=== PATIENT | female | born 1975 | race Caucasian/White ===

== ENCOUNTER 2020-08-03 06:50 | Day surgery (SDC) | payer OTHER ==
[2020-07-28 16:18] VITALS: BMI 44.8
--- OUTSIDE RECORDS SUMMARY | 2020-08-03 06:54 | XMS ---
:1975 Author Organization [facility] Care Team Providers Name Role Phone DONAL, ONDINA Unavailable Unavailable DONAL, ONDINA Unavailable Unavailable DONAL, ONDINA Unavailable Unavailable DONAL, ONDINA Unavailable Unavailable DONAL, ONDINA Unavailable Unavailable DONAL, ONDINA Unavailable Unavailable DONAL, ONDINA Unavailable Unavailable DONAL, ONDINA Unavailable Unavailable DONAL, ONDINA Unavailable Unavailable DONAL, ONDINA Unavailable Unavailable DONAL, ONDINA Unavailable Unavailable DONAL, ONDINA Unavailable Unavailable DONAL, ONDINA Unavailable Unavailable Mj GUSTAFSON, Vale Unavailable Unavailable Mj GUSTAFSON, Vale Unavailable Unavailable Mj GUSTAFSON, Vale Unavailable Unavailable Mj GUSTAFSON, Vale Unavailable Unavailable Mj GUSTAFSON, Vale Unavailable Unavailable Mj GUSTAFSON, Vale Unavailable Unavailable Re-disclosure Warning The records that you are about to access may contain information from federally- assisted alcohol or drug abuse programs. If such information is present, then the following federally mandated warning applies: This information has been disclosed to you from records protected by federal confidentiality rules (42 CFR part 2). The federal rules prohibit you from making any further disclosure of this information unless further disclosure is expressly permitted by the written consent of the person to whom it pertains or as otherwise permitted by 42 CFR part 2. A general authorization for the release of medical or other information is NOT sufficient for this purpose. The Federal rules restrict any use of the information to criminally investigate or prosecute any alcohol or drug abuse patient.The records that you are about to access may contain highly sensitive health information, the redisclosure of which is protected by Article 27-F of the [facility] Public Health law. If you continue you may haveaccess to information: Regarding HIV / AIDS; Provided by facilities licensed or operated by the [facility] Office of Mental Health; or Provided by the [facility] Office for People With Developmental Disabilities. If such information is present, then the following [facility] mandated warning applies: This information has been disclosed to you from confidential records which are protected by state law. State law prohibits you from making any further disclosure of this information without the specific written consent of the person to whom it pertains, or as otherwise permitted by law. Any unauthorized further disclosure in violation of state law may result in a fine or senior living sentence or both. A general authorization for the release of medical or other information is NOT sufficient authorization for further disclosure. Allergies and Adverse Reactions Type Description Substance Reaction Status Data Source(s ) Propensity to SHELLFISH DERIVED Shellfish Hives Medium Active [facility] adverse Derived (qualifier [facility] reactions to value) [facility] [employer] drug Medium propensity to No known allergy No known allergies Active NEXTGEN ([place] adverse reactions (situation) (situation) Medic al) to drug Family History Family Member Family Member Family Member Date of Description Data Source(s) Name Gender Status Status Unknown Female Diagnosis 06/27/2017 NEXTGEN 12:00:00 AM ([facility]) Unknown Female Diagnosis 06/27/2017 NEXTGEN 12:00:00 AM ([facility]) Encounters Encounter Providers Location Date Indications Data Source(s ) Outpatient Attender: Vale 06/09/2020 NEXTGEN ( [place] [facility] 12:00:00 AM Medical) MDReferrer: ONDINA BREAUX DONAL Emergency 01/10/2019 Shortness of Breath [facility] 09:43:57 PM [facility] 01/10/2019 11:56:15 PM EST Shortness of Breath Emergency 01/10/2019 12:00:00 AM [facility] Medications Medication Brand Start Product Dose Route Administrative Pharmacy [facility] Indications Reaction Description Data Name Date Form Instructions Instructions Source(s) Azithromyci azithr 01/10/ active Take tw o Bon n 250 MG omycin 2019 tablets Sec[facility] s Oral Tablet (ZITHR 12:00: today the n Cynthia azithromyci OMAX 00 AM one tablet H ealth n Z-BLAIRE) EST daily [employer] (ZITHROMAX 250 mg Z-BLAIRE) 250 tablet mg tablet Ergocalcife Vitami 11/25/ CAPSULE ORAL active take 1 NEXTGEN rol 85765 n D2 2019 capsule by ([place] [facility] Oral 50,000 12:00: oral route M edical) Capsule unit 00 AM every other Vitamin D2 capsul EST week with 50,000 unit e meals capsule Alprazolam Xanax TABLET 1 ORAL active alprazola m NEXTGEN 0.5 MG Oral 0.5 mg {tabl 0.5 MG Ora l ([place] Tablet tablet et} Tablet Medical) [Xanax] [Xanax] Xanax 0.5 mg tablet quinapril quinap 10 mg Oral active Take 10 mg Bon 10 MG Oral ril by mouth Sec[facility] rs Tablet (ACCUP nightly. Cynthia quinapril RIL) Health (ACCUPRIL) 10 mg System I nc 10 mg tablet tablet quinapril quinap TABLET 1.00 ORAL active take 1 NE XTGEN 10 mg ril 10 {tabl tablet by ([place] and tablet MG et} oral route Medical ) Oral every day Tablet Alprazolam ALPRAZ 0.5 Oral active Take 0.5 m g Bon 0.5 MG Oral olam mg by mouth Sec[facility] urs Tablet (XANAX three (3) Charit y [Xanax] ) 0.5 times daily Heal th ALPRAZolam mg as needed [facility] [employer] (XANAX) 0.5 tablet for Anxiety . mg tablet Ergocalcife Vitami CAPSULE ORAL active take 1 NEXTGEN rol 69868 n D2 capsule by ([place] [facility] Oral 50,000 oral route Med ical) Capsule unit every other Vitamin D2 capsul week 50,000 unit e capsule Alyacen Ethiny TABLET 1.00 ORAL active Alyacen 1/3 5 NEXTGEN (28) 1 l {tabl 28-Day Kit ( [place] mg-35 mcg Estrad et} Medical) tablet iol 0.035 MG / Noreth indron e 1 MG Oral Tablet Insurance Providers Payer name Policy type / Policy ID Covered Covered constitution party's Policy Plan Coverage type constitution party ID relationship to Lee Information lee ELFRIDA [id number] [facility] HEALTH PLANS [place] [employer] [id number] self [id number] insurance ELFRIDA [id number] 1 HEALTH PLAN [facility] [id number] HEALTH PLAN Problems, Conditions, and Diagnoses Code Display Name Description Problem Type Effective Data Dates Source(s) Z13.89 Encounter for Encounter for Diagnosis 11/13/2018 NEXTGEN screening for screening for interpretation 12:00:00 AM ([facility] other disorder other disorder (observable EST Medic al) entity) [id number] Hypertensive Hypertensive Problem (finding) 06/27/2017 NEX TGEN disorder disorder 12:00:00 AM ([facility] Medical) [id number] Anxiety Anxiety Problem (finding) 06/27/2017 NEXTGEN 12:00:00 AM ([facility]) D56.3 Thalassemia minor Thalassemia minor Diagnosis NEXTGEN interpretation ([place] (observable Medical) entity) D47.3 Essential Essential Diagnosis NEXTGEN (hemorrhagic) thrombocytosis interpretation ([facility] thrombocythemia (observable Medical) entity) D72.829 Elevated white Leukocytosis Diagnosis NEXTGEN blood cell count, interpretation ([facility] unspecified (observable Medical) entity) 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 NEXTGEN malabsorption, malabsorption, interpretation ([facility] unspecified unspecified (observable Medical) entity) D50.0 Iron deficiency Iron deficiency Diagnosis NEXT GEN anemia secondary anemia secondary interpretation ([place] to blood loss to blood loss (observable Medical ) (chronic) (chronic) entity) D51.8 Other vitamin B12 Other vitamin B12 Diagnosis NEXTGEN deficiency anemias deficiency interpretation ([facility] anemias (observable Medical) entity) D47.3 Essential Essential Diagnosis NEXTGEN (hemorrhagic) thrombocytosis interpretation ([facility] thrombocythemia (observable Medical) entity) D72.829 Elevated white Leukocytosis Diagnosis NEXTGEN blood cell count, interpretation ([facility] unspecified (observable Medical) entity) E61.1 Iron deficiency Iron deficiency Diagnosis NEXT GEN interpretation ([place] (observable Medical) entity) D68.0 Von Willebrand's Von Willebrand's Diagnosis NE XTGEN disease disease interpretation ([place] (observable Medical) entity) D56.3 Thalassemia minor Thalassemia minor Diagnosis NEXTGEN interpretation ([place] (observable Medical) entity) D51.8 Other vitamin B12 Other vitamin B12 Diagnosis NEXTGEN deficiency anemias deficiency interpretation ([facility] anemias (observable Medical) entity) D50.0 Iron deficiency Iron deficiency Diagnosis NEXT GEN anemia secondary anemia secondary interpretation ([place] to blood loss to blood loss (observable Medical ) (chronic) (chronic) entity) D68.0 Von Willebrand's Von Willebrand's Diagnosis NE XTGEN disease disease interpretation ([place] (observable Medical) entity) D51.8 Other vitamin B12 Other vitamin B12 Diagnosis [facility]EXTGEN deficiency [facility]ias [facility]) D50.0 Iron deficiency Iron deficiency Diagnosis NEXT GEN anemia secondary anemia secondary interpretation ([place] to blood loss to blood loss (observable Medical ) (chronic) (chronic) entity) D50.0 Iron deficiency Iron deficiency Diagnosis NEXT GEN anemia secondary anemia secondary interpretation ([place] to blood loss to blood loss (observable Medical ) (chronic) (chronic) entity) D68.0 Von Willebrand's Von Willebrand's Diagnosis NE XTGEN disease disease interpretation ([place] (observable Medical) entity) D51.8 Other vitamin B12 Other vitamin B12 Diagnosis NEXTGEN deficiency anemias deficiency interpretation ([facility] anemias (observable Medical) entity) 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 NEXTGEN malabsorption, malabsorption, interpretation ([facility] unspecified unspecified (observable Medical) entity) E61.1 Iron deficiency Iron deficiency Diagnosis NEXT GEN interpretation ([place] (observable Medical) entity) D68.0 Von Willebrand's Von Willebrand's Diagnosis NE XTGEN disease disease interpretation ([place] (observable Medical) entity) D51.8 Other vitamin B12 Other vitamin B12 Diagnosis NEXTGEN deficiency anemias deficiency interpretation ([facility] anemias (observable Medical) entity) 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 NEXTGEN malabsorption, malabsorption, interpretation ([facility] unspecified unspecified (observable Medical) entity) E61.1 Iron deficiency Iron deficiency Diagnosis NEXT GEN interpretation ([place] (observable Medical) entity) G56.22 Lesion of ulnar Lesion of ulnar Diagnosis NEXT GEN nerve, left upper nerve, left upper interpretation ([place] limb limb (observable Medical) entity) R06.02 Shortness of Shortness of Diagnosis 01/10/2019 [facility] - Go od breath breath 09:43:57 PM [facility] J20.8 Acute bronchitis Acute bronchitis Diagnosis 01/10/2019 [facility] - Good due to other due to other 09:43:57 PM [facility] organisms organisms Diagnosis NEXTGEN ([place] [facility]) Diagnosis NEXTGEN ([place]) Surgeries/Procedures Procedure Description Date Indications Data Source(s) NRV CNDJ TST 5-6 06/09/2020 NEXTGEN ([facility] STUDIES 12:00:00 AM EDT - Medical) 06/09/2020 12:00:00 AM EDT MUSC TEST DONE W/N 06/09/2020 NEXTGEN ( [place] TEST COMP 12:00:00 AM EDT - Medical) 06/09/2020 12:00:00 AM EDT HC INFLUENZA A HC INFLUENZA A STAT 01/10/2019 019 [facility] W/OPTIC W/OPTIC 10:13 PM EST 03:13:00 AM [facility] I nc HCG QL SERUM HCG QL SERUM STAT 01/10/2019 01/11/2019 [facility] 10:03 PM EST 03:03:00 AM [facility] I nc HC D DIMER QUANT HC D DIMER QUANT STAT 01/10/201901/2019 [facility] 10:03 PM EST 03:03:00 AM [facility] nc CBC WITH AUTOMATED CBC WITH STAT 01/10/2019 9 [facility] DIFF AUTOMATED DIFF 10:03 PM EST 03:03:00 AM [facility] I nc HC TROPONIN I HC TROPONIN I STAT 01/10/2019 9 [facility] QUANT QUANT 10:03 PM EST 03:03:00 AM [facility] I nc METABOLIC PANEL, METABOLIC PANEL, STAT 01/10/201901/2019 [facility] COMPREHENSIVE COMPREHENSIVE 10:03 PM EST 03:03:0 0 AM [facility] I nc EKG, 12 LEAD, EKG, 12 LEAD, STAT 01/10/2019 9 [facility] INITIAL INITIAL 9:55 PM EST 02:55:20 AM [facility] I nc OFFICE/OUTPATIENT VISIT, EST 11/13/2018 12:00:00 AM ES T NEXTGEN ([place] - 11/13/2018 12:00:00 AM Med ical) EST BRIEF EMOTIONAL/BEHAV ASSMT 11/13/2018 12:00:00 AM EST NEXTGEN ([place] - 11/13/2018 12:00:00 AM Med ical) EST OFFICE/OUTPATIENT VISIT, EST 08/05/2018 12:00:00 AM ED T NEXTGEN ([place] - 08/05/2018 12:00:00 AM Med ical) EDT OFFICE/OUTPATIENT VISIT, EST 04/08/2018 12:00:00 AM ED T NEXTGEN ([place] - 04/08/2018 12:00:00 AM Med ical) EDT OFFICE/OUTPATIENT VISIT, EST 12/05/2017 12:00:00 AM ES T NEXTGEN ([facility] 12/05/2017 12:00:00 AM Med ical) EST OFFICE/OUTPATIENT VISIT, EST 07/25/2017 12:00:00 AM ED T NEXTGEN ([place] - 07/25/2017 12:00:00 AM Med ical) EDT OFFICE CONSULTATION 06/27/2017 12:00:00 AM EDT NEXTGEN ([facility] 06/27/2017 12:00:00 AM Med ical) EDT Results ID Date Data Source [id number] 01/11/2019 08:00:38 PM [facility] The history is provided by the patient.9 :49 PM: Lary Nelson is a 43 y.o. female with h/o anxiety who presents tot ED c /o shortness of breath with associated chest pain which "feels likesomeone is grabbin g her sides) and is worse on the left side than the right.Patient also reports havi ng a cough and sore throat onset today. Patient deniesfever or nasal congestion. No other complaints at this time.No past medical history on file.No past surgical history on file.No family history on file.Social HistorySocioeconomic History Marital status: Not on file Spouse name: Not on file Number of children: Not on file Years of education: Not on file Highest education level: Not on fileSoci al Needs Financial resource strain: Not on file Food insecurity - worry: Not on fi le Food insecurity - inability: Not on file Transportation needs - medical: Not on f ile Transportation needs - non-medical: Not on fileOccupational History Not on file Tobacco Use Smoking status: Not on fileSubstance and Sexual Activity Alcoh ol use: Not on file Drug use: Not on file Sexual activity: Not on fileOther Topics Concern Not on fileSocial History Narrative Not on fileALLERGIES: Patient has no al lergy information on record.Review of SystemsConstitutional: Negative for chil ls and fever.HENT: Positive for sore throat. Negative for congestion and rhinorrhea.E yes: Negative for photophobia and visual disturbance.Respiratory: Positive for co ugh and shortness of breath.Cardiovascular: Positive for chest pain ("feels like mary eone is grabbing her"and is worse on left side than right). Negative for leg swell ing.Gastrointestinal: Negative for abdominal pain, diarrhea, nausea and vomiting.Kasey tourinary: Negative for dysuria and hematuria.Musculoskeletal: Negative for back pain and myalgias.Skin: Negative for color change and pallor.Neurological: Ne gative for seizures and syncope.Vitals: 01/10/19 2148 01/10/19 2150BP: (!) 149/9 1Pulse: (!) 108Resp: 22Temp: 98.1 F (36.7 C)SpO2: 100%Weight: 124.7 kg (275 lb)He ight: 5' 7" (1.702 m)9:48 PM Pulse Oximetry reading is 100 % on room air, which emily cates normaloxygenation per Ban Carey MD.Physical ExamConstitutional: She is o riented to person, place, and time. She appearswell-developed and well-nourished . No distress.Patient is obese.HENT:Head: Normocephalic and atraumatic.Eyes: EOM a re normal. Pupils are equal, round, and reactive to light.Neck: Neck supple. No JVD present.Cardiovascular: Regular rhythm and normal heart sounds. Tachycardia pre sent.Pulmonary/Chest: Effort normal and breath sounds normal. No respiratorydist ress. She has no wheezes. She has no rales.Abdominal: Soft. She exhibits no d istension. There is no tenderness. There is norebound and no guarding.Musculoskeleta l: Normal range of motion. She exhibits no edema or tenderness.Neurological: She is alert and oriented to person, place, and time.Skin: Skin is warm and dry.Psychiat radu: She has a normal mood and affect.Nursing note and vitals reviewed.MDMNumber of Di agnoses or Management OptionsAnxiety state:SOB (shortness of breath):Amount a nd/or Complexity of Data ReviewedClinical lab tests: ordered and reviewedTests in the radiology section of CPT : ordered and reviewedDecide to obtain previous medica l records or to obtain history from someoneother than the patient: yesReview and summarize past medical records: yesIndependent visualization of images, tracings, or specimens: yesProDinah Au Priti V, MD, reviewed the patien t's past history, allergies and homemedications as documented in the [facility] chart.Labs:Recent Results (from the past 12 hour(s))EKG, 12 LEAD, INITIAL Collect ion Time: 01/10/19 9:55 PMResult Value Ref Range Ventricular Rate 100 BPM Atrial Ra te 99 BPM P-R Interval 156 ms QRS Duration 83 ms Q-T Interval 348 ms QTC Calculation ( Bezet) 449 ms Calculated P [place] 66 degrees Calculated R [place] -9 degrees Calculated T [place] 30 degrees Diagnosis Sinus tachycardiaProbable left atrial enlargem entMETABOLIC PANEL, COMPREHENSIVE Collection Time: 01/10/19 10:03 PMResult Value Ref Range Sodium 138 136 - 145 mmol/L Potassium 3.7 3.5 - 5.1 mmol/L Chloride 103 98 - 1 07 mmol/L CO2 26 21 - 32 mmol/L Anion gap 13 10 - 20 mmol/L Glucose 106 74 - 106 mg/d L BUN 16 7 - 18 mg/dL Creatinine 0.81 0.40 - 1.16 mg/dL GFR est AA >60 >60 ml/min/1.7 3m2 GFR est non-AA >60 >60 ml/min/1.73m2 Calcium 8.8 8.5 - 10.1 mg/dL Bilirubin, total 0.3 0.2 - 1.0 mg/dL ALT (SGPT) 16 13 - 61 U/L AST (SGOT) 8 (L) 15 - 37 U/L Alk. phosphatase 123 (H) 45 - 117 U/L Protein, total 8.1 6.4 - 8.2 g/dL Albumin 3.5 3.5 - 4.7 g/dL Globulin 4.6 1.7 - 4.7 g/dL A-G Ratio 0.7 0.7 - 2.8CBC WITH AUTOMATED DI FF Collection Time: 01/10/19 10:03 PMResult Value Ref Range WBC 13.2 (H) 4.8 - 10.6 K/uL RBC 4.63 4.20 - 5.40 M/uL HGB 12.9 12.0 - 16.0 g/dL HCT 39.3 36.0 - 47.0 % MCV 8 4.9 81.0 - 94.0 FL MCH 27.9 27.0 - 35.0 PG MCHC 32.8 30.7 - 37.3 g/dL RDW 14.2 (H) 11.5 - 14.0 % PLATELET 372 130 - 400 K/uL MPV 9.3 9.2 - 11.8 FL NEUTROPHILS 64 48.0 - 72.0 % LYMPHOCYTES 27 18.0 - 40.0 % MONOCYTES 8 2.0 - 12.0 % EOSINOPHILS 1 0.0 - 7.0 % BASOPHILS 0 0.0 - 3.0 % ABS. NEUTROPHILS 8.4 (H) 1.5 - 6.6 K/UL ABS. LYMPHOCYTES 3.5 1.5 - 3.5 K/UL ABS. MONOCYTES 1.1 (H) 0.0 - 1.0 K/UL ABS. EOSINOPHILS 0.2 0.0 - 0.7 K/UL ABS. BASOPHILS 0.0 0.0 - 0.1 K/UL DF AUTOMATED IMMATURE GRANULOCYTES 0 0.0 - 2.0 %TROPONIN I Collection Time: 01/10/19 10:03 PMResult Value Ref Range Troponin- I, Qt. <0.02 0.00 - 0.05 NG/MLD DIMER Collection Time: 01/10/19 10:03 PMResult Value Ref Range D-dimer <500 <500 ng/mLHCG QL SERUM Collection Time: 01/10/19 10:03 PMResult Value Ref Range HCG, Ql. NEGATIVE NEGINFLUENZA A & B AG (RAPID TEST) Colle vaion Time: 01/10/19 10:13 PMResult Value Ref Range Influenza A Ag NEGATIVE NEG Influ vicki B Ag NEGATIVE NEG Method IMMUNOCHROMATOGRAPHIC MEMBRANE ASSAY Com ment Result: Negative for Influenza A and B Source NASOPHARYNGEALEKG: Sinus tachycar kiley at 100 BPM. Interpreted by Ban Carey MD9:55 PM equipment monitor phototypesetting reading valente ws sinus tachycardia at 100 BPM. Interpretedby Ban Carey MD.Radiol ogy:CXR Results: Negative. Interpreted by Ban Carey MD<EMERGENCY DEPARTMENT CASE SUMMARY>Impression/Differential Diagnosis: Shortness of breath. R/o PE.E D Course:43 y.o. female presented to the ED c/o shortness of breath with associated chestpain which "feels like someone is grabbing her sides) and is worse on the leftside than the right. Order labs, Troponin, EKG, Tight Barrel Inspector, and CXR. Giveoxygen.10:21 PM Give Duo-Neb.10:35 PM Give Xanax.Labs and radiology results re viewed.(-) D dimer11:21 PM Give Zithromax.11:28 PM: Patient was reassess ed prior to discharge. Patient's symptomsImproved. I personally discussed discharge plan with patient/guardian, whounderstands instructions. All questio ns were answered. Patient/guardian advisedto follow up with PMD and/or specialist. Ramon tient/guardian instructed to returnto the ER if symptoms persist, change or worsen. P atient agrees with plan. Rx:Zithromax 250mg.Final Impression/Diagnosis:Encount er Diagnoses ICD-10-CM ICD-9-CM1. Anxiety state F41.1 300.002. SOB (shortness of b reath) R06.02 786.053. Acute bronchitis due to other specified organisms J20.8 466.0 Patient condition at time of disposition: stableI have reviewed the following home medications:Prior to Admission medicationsNot on Ban Mott M D I, Kate E Stillman, am serving as a scribe to document services personallyperformed by Ban Carey MD based on my observation and the provider'sstatements to me.I, Ban Carey MD, attest that the person(s) noted above, acting as mys cribe(s) noted above, has observed my performance of the services and hasdocum ented them in accordance with my direction. I have personally reviewed theabove inform ation and have ordered and reviewed the diagnostic studies, unlessotherwise note d. Name Value Range Interpretation Code Description Data Vera rce(s) Supporting Document(s ) ID Date Data Source [id number] 01/11/2019 09:14:06 AM [facility] XR CHEST PORTABLE-SINGLE VIEWPRIOR: None .HISTORY: As provided the time of presentation to the emergency room; ptco mplains of shortness of breath and cough, afebrile, complains a scratchythroat.FIN DINGS: No infiltrates, effusions, nodules or masses are identified. The heart, carole and mediastinum are unremarkable.IMPRESSION:1. No acute card iopulmonary disease.Signing date/time: 01/11/2019 9:14 AMSigned by: ST MONICA DARBY Name Value Range Interpretation Code Description Data Vera rce(s) Supporting Document(s ) ID Date Data Source [id number]*ENCOUNTER 01/10/2019 11:56:17 PM EST [facility] [id number] [facility] EMERGENCY DEPARTMENT [address] [facility] [address] [phone]/12/30 Lary Nelson (Female) [id number] SHANA 3 ED Dispo:DISCHARGE Chief Complaint: Shortness of Breath Diagnosis: Anxiety state [] SOB (shortness of breath) [] Acute bronchitis due to other specified organisms [] Current Providers: Attending: Lionel Carey Primary Nurse: HOWIE DaveyN: [phone] [id number] [employer] [id number] - Bs hsi Ed [employer] MrnMRN: [id number] [employer] [id number] - Bshsi Ed [employer]va Age SexDOB 8 AGE 43 SEX Female Primary Care Provider: NoneAllergy Agents Noted Type Reaction(s)SHELLFISH DERIVED 01/10/2019 Systemic 2 - HivesDate Reviewed: 01/10/2019[facility] ed by: Alfonso Puentes RN - Review CompleteED Provider Notes: No notes of this type exist for this encoun ter.ED Orders [id number] COMPRESSED GAS TESTER - ED ONLY [#[id number]] Priority: STAT Class: H ospital Performed Standing Order Information Remaining Occurrences:0/1 Interval:Contin uous Last released:01/10/2019 Released orders: [facility] Jan 10, 2019 9:53 PM by: MANE CAREY V Type: -> Bedside [id number] PULSE OXIMETRY CONTINUOUS [#[id number]] Priority: STAT Cla ss: Hospital Performed Standing Order Information Remaining Occurrences:0/1 Interval:CONTIN UOUS Last released:01/10/2019 Released orders: [facility] Jan 10, 2019 9:53 PM by: MANE CAREY V [id number] PULSE OXIMETRY SPOT CHECK [#[id number]] Priority: STAT Class: Hospital Performe d Standing Order Information Remaining Occurrences:0/1 Interval:ONE TIME Last released :01/10/2019 Released orders: [facility] Jan 10, 2019 9:53 PM by: BAN CAREY V [id number] CARDIAC MO NITOR - ED ONLY [#[id number]] Priority: STAT Class: Hospital Performed Type: -> Bedside Released on: 01/10/2019 9:53 PM [id number] PULSE OXIMETRY CONTINUOUS [#[id number]] P riority: STAT Class: Hospital Performed Released on: 01/10/2019 9:53 PM [id number] PULSE OXIMETRY SPOT CH TESFAYE [#[id number]] Priority: STAT Class: Hospital Performed Released on: 01/10/2019 9: 53 PM [id number] RT--OXYGEN CANNULA [#[id number]] Priority: STAT Class: Hospital Performe d Standing Order Information Remaining Occurrences:0/1 Interval:CONTINUOUS Last releas ed:01/10/2019 Released orders: [facility] Jan 10, 2019 9:53 PM by: BAN CAREY V LPM -> 2 Indications for O2? -> RESPIRATORY DISTRESS [id number] RT--OXYGEN CANNULA [#[id number]] Priority: STAT Class: Hospital Performed LPM -> 2 Indications for O2? -> RESPIRATORY DISTR ESS Released on: 01/10/2019 9:53 PM [id number] DIET NPO [#[id number]] Priori ty: STAT Class: Hospital Performed Standing Order Information Remaining Occurrences:0/1 Inte rval:DIET EFFECTIVE NOW Last released:01/10/2019 Released orders: [facility] Jan 10, 2019 9:53 PM by: BAN CAREY V [id number] DIET NPO [#[id number]] Priority: STAT Class: Hospital Performed Released on: 01/10/2019 9:53 PM [id number] SALINE LOCK IV [# [id number]] Priority: STAT Class: Hospital Performed Standing Order Information Remaining Occurre nces:0/1 Interval:ONE TIME Last released:01/10/2019 Released orders: [facility] Jan 10 9:53 PM by: BAN CAREY V [id number] SALINE LOCK IV [#[id number]] Priority: STAT Class: Hospital Performed Released on: 01/10/2019 9:53 PM [id number] METABOLIC PANEL, COMPREHENSIVE [#[id number]] Priority: STAT Class: ER Collect Standing Order Information Remaining Occurre nces:0/1 Interval:ONE TIME Last released:01/10/2019 Released orders: [facility] Jan 10 9:53 PM by: BAN CAREY V [id number] CBC WITH AUTOMATED DIFF [#[id number]] Priority: STAT Class: ER Collect Standing Order Information Remaining Occurrences:0/1 Interval:ONE TI ME Last released:01/10/2019 Released orders: [facility] Jan 10, 2019 9:53 PM by: MANE CAREY V [id number] TROPONIN I [#[id number]] Priority: STAT Class: ER Collect Sta nding Order Information Remaining Occurrences:0/1 Interval:NOW Last released:2018 Released orders: [facility] Jan 10, 2019 9:53 PM by: BAN CAREY V [id number] D DIMER [#[id number]] Priority: STAT Class: ER Collect Standing Order Information Remaining Occurrences:0/1 Interval:ONE TIME Last released:01/10/2019 Released orders : [facility] Jan 10, 2019 9:53 PM by: BAN CAREY V [id number] HCG QL SERUM [# [id number]] Priority: STAT Class: ER Collect Standing Order Information Remaining Occurrences:0 /1 Interval:ONE TIME Last released:01/10/2019 Released orders: [facility] Jan 10, 2019 9:53 PM by: BAN CAREY V [id number] METABOLIC PANEL, COMPREHENSIVE [#[id number]] Mane ority: STAT Class: ER Collect Specimen Source: Plasma Specimen Collected: 01/10/2019 10:03 PM Resultin g Agency: [facility] Test ID: MPL Released on: 01/10/2019 9:53 PM [id number] CBC WITH AUTOMATED DIFF [#[id number]] Priority: STAT Class: ER Collect Specimen Source : Whole Blood Specimen Collected: 01/10/2019 10:03 PM Resulting Agency: [facility] Test ID: [id number] Released on: 01/10/2019 9:53 PM [id number] TROPONIN I [# [id number]] Priority: STAT Class: ER Collect Specimen Source: Plasma Specimen Collected: 01/10/2019 1 0:03 PM Resulting Agency: [facility] Test ID: TROIP Released on: 01/10/2019 9: 53 PM [id number] D DIMER [#[id number]] Priority: STAT Class: ER Collect Speci men Source: Plasma Specimen Collected: 01/10/2019 10:03 PM Resulting Agency: [facility] Test ID: [id number] Released on: 01/10/2019 9:53 PM [id number] HCG QL SERUM [#[id number]] Priority: STAT Class: ER Collect Specimen Source: Serum Specimen Collected: 01/10 10:03 PM Resulting Agency: [facility] Test ID: [id number] Released on: 9 9:53 PM [id number] EKG, 12 LEAD, INITIAL [#[id number]] Priority: STAT Class: H ospital Performed Standing Order Information Remaining Occurrences:0/1 Interval:ONE TI ME Last released:01/10/2019 Released orders: Sat Jan 10, 2019 9:53 PM by: MANE CAREY V Reason for Exam: -> Shortness of Breath [id number] EKG, 12 LEAD, INITIAL [#[id number]] Priority: STAT Class: Hospital Performed Specimen Collected: 01/10/2019 9:55 PM Resultin g Agency: [facility] Test ID: [id number] Reason for Exam: -> Shortness of Breath Released on: 12/2018 9:53 PM [id number] XR CHEST PORT [#[id number]] Priority: STAT Class: H ospital Performed Standing Order Information Remaining Occurrences:0/1 Interval:ONE TI ME Last released:01/10/2019 Released orders: Sat Jan 10, 2019 9:53 PM by: MANE CAREY V Reason for Exam -> Shortness of Breath [id number] XR CHEST PORT [#[id number] ] Priority: STAT Class: Hospital Performed Resulting Agency: [facility] Test ID: [id number] Reason for Exam -> Shortness of Breath Released on: 01/10/2019 9:53 PM ALPRAZOLAM 0.5 MG TAB [#[id number]] Priority: Routine Class: Historical Med QUINAPRIL 10 MG TAB [#[id number]] Priority: Routine Class: Historical Med IPRATROPIUM-ALBUTEROL 2.5 MG-0.5 MG/* [# [id number]] Priority: STAT Class: Normal MODE OF DELIVERY -> Nebulizer ALPRAZOLAM 0.5 MG TA B [#[id number]] Priority: STAT Class: Normal AZITHROMYCIN 250 MG TAB [#[id number]] Priority: STAT Class: Normal Antibiotic Indications -> Upper Respiratory Infecti on AZITHROMYCIN 250 MG TAB [#[id number]] Priority: Routine Class: Normal OFN998 6 INFLUENZA A & B AG (RAPID TEST) [#[id number]] Priority: STAT Class: ER Collect Standing Orde r Information Remaining Occurrences:0/1 Interval:ONE TIME Last released:01/10/2019 Released orders: Sat Jan 10, 2019 10:12 PM by: DOMO DAVEY [id number] INFLUENZA A & B AG (RAP ID TEST) [#[id number]] Priority: STAT Class: ER Collect Specimen Source: Nasal washing Specimen Collected: 01/10/2019 10:13 PM Resulting Agency: [facility] Test ID: INFLUA Released on: 01/10/2019 10:12 PMLary Nelson MR#: [id number] * Rm: [id number] Ht: 5' 7" Wt: 275 lb Code: Not on file Iso:Diagnosis:Allergies: Shellfish Derived ------ Current as of: 01/10/19 2356 GI=Given -------albuterol-ipratropium (DUO-NEB) 2.5 MG-0.5 MG/3 ML #[id number] Admin Amount: 3 mL Ordered Dose: 3 mL Route: Nebulization Freq: NOW Start Date: 01/10/19 Administration times (back 96 hours, ahead 96 hours): 01/10/19: 2226GI -----ALPRAZolam (XANAX) tablet 0.5 mg #[id number] Admin Amount: 1 Tab (1 x 0.5 mg Tab) Ordered Dose: 0.5 mg Route: Leslye simms Freq: NOW Start Date: 01/10/19 Administration times (back 96 hours, ahe ad 96 hours): 01/10/19: 2237GI -----azithromycin (ZITHROMAX) tablet 500 mg #[id number] Admin Amount: 2 Tab (2 x 250 mg Tab) Ordered Dose: 500 mg Route: Oral Nasir q: NOW Start Date: 01/10/19 Administration times (back 96 hours, ahead 96 hours): 01/10/19: 2328GI ED Current OP MedicationsALPRAZolam (XANAX) 0.5 mg tab letSig:Take 0.5 mg by mouth three (3) times daily as needed for Anxiety.Dispense Amount:Start Date:End D ate:Doc. Provider: Kunal Lloyd MDquinapril (ACCUPRIL) 10 mg tabletSig:Take 10 mg by mouth nightly.Di spense Amount:Start Date:End Date:Doc. Provider: Kunal Lloyd MDazithromycin (ZITHROMAX Z-BLAIRE) 250 mg tabletSig:Take two tablets today then one tablet dailyDispense Amount:6 TabStart Date:01/10/2019End Date: Doc. Provider: Ban Carey MD ED Prescriptionsazithromycin (ZITHROMAX Z-P AK) 250 mg tabletSig:Take two tablets today then one tablet dailyDispense Amount:6 TabStart Date:01/10End Date:Auth. Provider: Ban Carey MDFollow-up InformationFollow-up With:Rick Wong DODetails:Schedule an appointment as soon as possible for a visit in 2 daysComments:Contact Info:[address] [phone]-cm With:Details:Comments:As needed, If symp toms worsenContact Info: Name Value Range Interpretation Code Description [facility] Supporting Document(s ) ID Date Data Source [id number] 01/10/2019 11:56:06 PM [facility] Discharge instructions reviewed with ahsan barcenas, educated regarding newprescriptions and f/u care. Verbalized understanding obtai chris. Patient a&ox3,ambulatory out of ED with steady gait, no distress noted. D/c home . Name Value Range Interpretation Code Description Data [facility] Supporting Document(s ) ID Date Data Source [id number] 01/10/2019 10:42:36 PM [facility] Patient states that she feels her sympto ms may be related to her anxiety, made aware. New orders received for xana x, see MAR. Name Value Range Interpretation Code Description Data Vera rce(s) Supporting Document(s ) ID Date Data Source [id number] 01/10/2019 10:49:05 PM EST [facility] Name Value Range Interpretation Description Data Sup porting Code Source(s) Document(s ) Influenza virus NEG [facility] - Good A Ag [Presence] [facility] in [facility] by Immunoassay [facility] [Presence] [facility] in [facility] by Immunoassay IMMUNOCHROMATOGRAPHIC MEMBRANE ASSAYResu lt: Negative for Influenza A and BNote: A negative result does not exclude an infl uenza virus infection, including H1N1. If more conclusive testing is desired, foll ow-up confirmatory testing is warranted. Specimen source [Identifier] of Unspecified [facility] specimen ID Date Data Source [id number] 01/10/2019 10:39:07 PM EST [facility] Name Value Range Interpretation Description Data Sup porting Code Source(s) Document(s ) Leukocytes 13.2 4.8-10.6 Above high normal [facility] - [#/volume] in K/uL Good Blood by [facility] Automated [facility] Erythrocytes 4.63 4.20-5.4 [facility] - [#/volume] in M/uL 0 Good Blood by Jain Automated [facility] Hemoglobin 12.9 12.0-16. [facility] - [Mass/volume] in g/dL 0 [facility] Blood [facility] Hematocrit 39.3 % 36.0-47. [facility] - [Volume 0 Good Fraction] of Jain Blood by Hospital Automated count Erythrocyte mean 84.9 FL 81.0-94. [facility] - corpuscular 0 Good volume [Entitic Jain volume] by Hospital Automated count Erythrocyte mean 27.9 PG 27.0-35. [facility] - corpuscular 0 Good hemoglobin [facility] [Entitic mass] [facility] by Automated count Erythrocyte mean 32.8 30.7-37. [facility] - corpuscular g/dL 3 Good hemoglobin [facility] [Mass/volume] by Automated count Erythrocyte 14.2 % 11.5-14. Above high normal [facility] - distribution 0 Good width [Ratio] by [facility] count [facility] Platelets 372 K/uL 130-400 [facility] - [#/volume] in Good Blood by [facility]ain Automated count [facility] Platelet mean 9.3 FL 9.2-11.8 [facility] - volume [Entitic Good volume] in [facility] by Automated Hospital count Segmented 64 % 48.0-72. [facility] - neutrophils/100 0 Good leukocytes in [facility] Lymphocytes/100 27 % 18.0-40. [facility] - leukocytes in 0 [facility] Monocytes/100 8 % 2.0-12.0 [facility] - leukocytes in [facility] Eosinophils/100 1 % 0.0-7.0 [facility] - leukocytes in [facility] Basophils/100 0 % 0.0-3.0 [facility] - leukocytes in [facility] Segmented 8.4 K/UL 1.5-6.6 Above high normal [facility] - neutrophils Good [#/volume] in [facility] Lymphocytes 3.5 K/UL 1.5-3.5 [facility] - [#/volume] in [facility] Monocytes 1.1 K/UL 0.0-1.0 Above high normal [facility] - [#/volume] in [facility] Eosinophils 0.2 K/UL 0.0-0.7 [facility] - [#/volume] in [facility] Basophils 0.0 K/UL 0.0-0.1 [facility] - [#/volume] in [facility] Differential [facility] - cell count [facility] method [facility] Immature 0 % 0.0-2.0 [facility] - granulocytes/100 Good leukocytes in [facility] Hospital Automated count ID Date Data Source [id number] 01/10/2019 10:51:06 PM EST [facility] Name Value Range Interpretation Description Data Sup porting Code Source(s) Document(s ) Sodium 138 136-145 [facility] - Good [Moles/volume] mmol/L Jain in Serum or Hospital Plasma Potassium 3.7 3.5-5.1 [facility] - Good [Moles/volume] mmol/L Jain in Serum or Hospital Plasma Chloride 103 98-107 [facility] - Good [Moles/volume] mmol/L Jain in Serum or Hospital Plasma Carbon 26 21-32 [facility] - Good dioxide, total mmol/L Jain [Moles/volume] Hospital in Serum or Plasma Anion gap in 13 10-20 [facility] - Good Serum or mmol/L Jain Plasma Hospital Glucose 106 74-106 [facility] - Good [Mass/volume] mg/dL Jain in Serum or Hospital Plasma Urea nitrogen 16 mg/dL 7-18 [facility] - Good [Mass/volume] Jain in Serum or Hospital Plasma Creatinine 0.81 0.40-1.1 [facility] - Good [Mass/volume] mg/dL 6 Jain in Serum or Hospital Plasma Glomerular >60 [facility] - Good filtration Jain rate/1.73 sq M Hospital predicted among blacks [Volume Rate/Area] in Serum or Plasma by Creatinine-bas ed formula (MDRD) Glomerular >60 [facility] - Good filtration Jain rate/1.73 sq M Hospital predicted among non-blacks [Volume Rate/Area] in Serum or Plasma by Creatinine-bas ed formula (MDRD) (NOTE)Estimated GFR is calculated using the Modification of Diet in RenalDisease (MDRD) Study equation, reported for both Americans(GFRAA) and non- Americans (GFRNA), and normalized to 1.7 9u4tkzz surface area. The physician must decide which value applies tothe patient . The MDRD study equation should only be used inindividuals age 18 or older. It has no t been validated for thefollowing: women, patients with serious comorbid co nditions,or on certain medications, or persons with extremes of body size,muscl e mass, or nutritional status. Calcium [Mass/volume] in 8.8 mg/dL 8.5-10.1 [facility] - Good Serum or Plasma [facility] ital Bilirubin.total 0.3 mg/dL 0.2-1.0 [facility] - Good [Mass/volume] in Serum or [facility] Plasma Alanine aminotransferase 16 U/L 13-61 [facility] - Good [Enzymatic activity/volume] [facility] in Serum or Plasma Aspartate aminotransferase 8 U/L 15-37 Below low normal [facility] - Good [Enzymatic activity/volume] [facility] in Serum or Plasma by With P-5'-P Alkaline phosphatase 123 U/L 45-117 Above high [facility] - Good [Enzymatic activity/volume] normal [facility] in Serum or Plasma Protein [Mass/volume] in 8.1 g/dL 6.4-8.2 [facility] - Good Serum or Plasma [facility] ital Albumin [Mass/volume] in 3.5 g/dL 3.5-4.7 [facility] - Good Serum or Plasma by [facility] ospital Bromocresol purple (BCP) dye binding method Globulin [Mass/volume] in 4.6 g/dL 1.7-4.7 [facility] - Good Serum by [facility] Albumin/Globulin [Mass 0.7 0.7-2.8 [facility] - Good Ratio] in Serum or Plasma [facility] ID Date Data Source [id number] 01/10/2019 10:51:06 PM EST [facility] Value Range Interpretation Description Data Sup porting Code Source(s) Document(s ) Troponin 0.00-0.05 [facility] - Good I.cardiac Jain [Mass/volume Hospital ] in Serum or Plasma (NOTE)The presence of detectable troponi n above the reference rangeindicates myocardial injury which may be due to is chemia,myocarditis, trauma, etc. Clinical correlation is necessary todetermine the significance of this finding. Sequential testing isrecommended to determine if th e typical rise and fall of cTnI isdemonstrated. Note, cardiac troponin-I has a relatively longhalf-life and may be present well after the CK MB has returne d tobaseline. cTnI results in the indeterminate/plascencia zone for myocardial infarction: 0.06 to 0.59 ng/mL cTnI cutoff/range of values consistent with m yocardial infarction: 0.60 to 1.50 ng/mL ID Date Data Source [id number] 01/10/2019 10:52:24 PM EST [facility] Value Range Interpretation Description Data Sup porting Code Source(s) Document(s ) Choriogonadotropin NEG [facility] - ( test) Good [Presence] in Serum [facility] or Plasma [facility] ID Date Data Source [id number] 01/10/2019 11:10:37 PM EST [facility] Name Value Range Interpretation Code Description Data Vera rce(s) Supporting Document(s ) Fibrin <500 [facility] - Good D-dimer [facility] [Mass/volume] [facility] in Platelet poor plasma (NOTE)Combination of a D-Dimer result wi thin the reference range and a lowclinical pretest probability has good negative pr edictive value fordeep venous thrombosis. ID Date Data Source [id number] 01/10/2019 09:51:52 PM EST [facility] Pt complains of shortness of breath and cough, afebrile, complains of scratchythroat. Name Value Range Interpretation Code Description Data Vera rce(s) Supporting Document(s ) Procedure Social History Code Duration Value Status Description Data Source(s ) Smoking 01/10/2019 Former smoker completed Former smoker [facility] 12:[facility]:00 AM EST [facility] [employer] ASSERTION 11/13/2018 completed NEXTGEN 12:00:00 AM EST ([facility]) Alcohol Use completed NEXTGEN Details ([facility]) Smoking UNK completed NEXTGEN ([facility]) Vital Signs ID Date Data Source UNK Name Value Range Interpretation Code Description Data Source(s) Oxygen saturation 100 % 100 % [facility] in Arterial blood [facility] [employer] by [employer] Respiratory rate 15 /min 15 /min [facility] [employer] Heart rate 97 /min 97 /min [facility] [employer] Diastolic blood 85 mm[Hg] 85 mm[Hg] [facility] pressure [employer] [facility] Systolic blood 126 mm[Hg] 126 mm[Hg] [place] pressure [employer] [facility] Body mass index 43.07 kg/m2 43.07 kg/m2 [facility] (BMI) [Ratio] [facility] Body weight 124.739 kg 124.739 kg [facility] Measured [employer] [facility] Body height 170.2 cm 170.2 cm [facility] [employer] Body temperature 36.72 Lupe 36.72 Lupe [facility] [employer] [facility] Body surface area 2.43 2.43 meter(2) NEXT GEN Derived from meter(2) ([facility]) Body mass index 45.19 Overweight 45.19 kg/meter(2) NE XTGEN (BMI) [Ratio] kg/meter(2) ([facility]) Respiratory rate 15 /min 15 /min NEXTGEN ([facility]) Body temperature 98.9 [degF] 98.9 [degF] NEXTGE N ([facility]) Heart rate 73 /min 73 /min NEXTGEN ([facility]) Diastolic blood 81 mm[Hg] 81 mm[Hg] NEXTGEN pressure ([facility]) Systolic blood 117 mm[Hg] 117 mm[Hg] NEXTGEN pressure ([facility]) Body weight 280.00 280.00 [lb_av] NEXTGEN Measured [lb_av] ([facility]) Body height 66.00 66.00 [in_us] NEXTGEN [in_us] ([facility]) Patient Treatment Plan of Care Planned Activity Planned Date Details Description Data Source (s) Azithromycin 250 MG Oral 01/10/2019 12:00:00 [facility] [address] [facility] Ergocalciferol [id number] UNT 11/25/2018 12:00:00 NEXTGEN ([place] Oral Capsule [facility]) Alprazolam 0.5 MG Oral NEXTG EN ([place] Tablet [Xanax] Medical) quinapril 10 mg tablet NEXTG EN ([facility]) Alyacen 1/35 (28) 1 mg-35 NE XTGEN ([place] mcg tablet Medical) quinapril 10 MG Oral [facility]t [facility] Alprazolam 0.5 MG Oral [facility] Ergocalciferol 22530 UNT NEX TGEN ([place] [facility] Caps[facility])
[2020-08-03] MEDS ORDERED: MIDAZOLAM HCL 2 MG/2 ML SINGLE DOSE VIAL ONE (07:22)
[2020-08-03] MEDS ORDERED: PROPOFOL 20 ML ONE (07:22)
[2020-08-03] MEDS ORDERED: BUPIVACAINE HCL/PF 0.25% (2.5MG/ML) 10 ML VIAL ONE (07:29)
[2020-08-03] MEDS ORDERED: LIDOCAINE HCL 2% (20ML MULTI-DOSE VIAL) ONE (07:29)
[2020-08-03] MEDS ORDERED: DEXAMETHASONE SOD PHOSPHATE 4 MG/1 ML VIAL ONE (08:58)
[2020-08-03] MEDS ORDERED: KETOROLAC TROMETHAMINE 30 MG/1 ML VIAL ONE (08:58)
[2020-08-03] MEDS ORDERED: ONDANSETRON 4 MG/2 ML VIAL ONE (08:58)
[2020-08-03] MEDS ORDERED: ceFAZolin SODIUM 1 GM VIAL ONE (08:58)
[2020-08-03] MEDS ORDERED: oxyCODONE HCL 5 MG TABLET PO PRN ×2 (09:36)
[2020-08-03] MEDS ORDERED: ONDANSETRON 4 MG/2 ML VIAL IVPUSH PRN (09:36)
[2020-08-03] MEDS ORDERED: GUM MASTIC/STORAX/MSAL/ALCOHOL 1 DRP DROPSBTL MC ONE (09:41)
[2020-08-03] MEDS ORDERED: LACTATED RINGERS SOLUTION 1,000 ML IV SCH (09:45)
[2020-08-03] MEDS ORDERED: BUPIVACAINE HCL/PF 0.25% (2.5MG/ML) 10 ML VIAL IJ ONE (09:45)
[2020-08-03 10:20] VITALS: TEMP 97.6
--- NOTE | 2020-08-03 11:11 | OP ---
DATE OF OPERATION: 08/03/2020 PREOPERATIVE DIAGNOSES: 1. 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 2. Left medial epicondylitis with partial tearing of the common flexor tendon. POSTOPERATIVE DIAGNOSES: 1. 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 2. Left medial epicondylitis with partial tearing of the common flexor tendon. OPERATIVE PROCEDURE: 1. Left ulnar nerve decompression at elbow. 2. Left medial epicondylectomy and debridement. 3. Left common flexor tendon debridement and repair. SURGEON: Robin Alejandro MD MANAGER ROOM: ARIK Warner ANESTHESIA: General. COMPLICATIONS: None. ESTIMATED BLOOD LOSS: Minimal. INDICATIONS FOR PROCEDURE: A 44-year-old female with the above finding, indicated for operative treatment. The risks, benefits and alternatives were discussed with her at length. Proper informed consent was obtained. PROCEDURE: After proper identification of patient and correct operative site, patient was brought to the operating room, placed supine on the table, all prominences well padded. General anesthesia was given. Left upper extremity was prepped and draped in usual sterile fashion. Intravenous antibiotics were given. Timeout procedure was performed. Esmarch bandage to exsanguinate left upper extremity. Tourniquet was inflated to 250 mmHg. Curvilinear incision made over the posteromedial aspect of the elbow. Incision was taken sharply through skin with blunt and sharp dissection through the subcutaneous tissues, maintaining hemostasis with bipolar electrocautery. The ulnar nerve was identified proximal to the medial epicondyle and was released from a rugikuqr-tn-nkagal direction through Fields's ligament and the cubital tunnel all the way to the 2 heads of the flexor carpi ulnaris muscle belly which provided complete decompression of the ulnar nerve from the medial intermuscular septum all the way down to the distal aspect of the elbow. There was no subluxation of the nerve and no soft compression, so no transposition was performed. The medial epicondyle was found to be hyperemic and with significant tendinosis. The common flexor tendon was split and severe tendinosis and partial tear were noted beneath the superficial layer. This was debrided. The medial epicondyle bone was debrided itself as well to help with bone and the tendon was reattached in a mytr-wt-vwoo fashion back down to the medial epicondyle. Elbow was taken through range of motion and again there was no compression on the ulnar nerve and the repair was stable. The wound was irrigated with saline and repaired in layers using 4-0 Vicryl and 4-0 Monocryl suture. Steri-Strips, sterile dressings were placed. The patient was reversed from anesthesia, brought to the recovery room in stable condition. Tc Wolf, the triage assistant, was integral throughout the procedure. Procedure could not have been performed without a skilled operative triage assistant. Flores ORANTES/[id number]
[2020-08-03 11:42] VITALS: BP 118/72; PULSE 71
--- NOTE | 2020-08-08 11:51 | PATH ---
Surgical Pathology Report Patient Name: KEN FRAGOSO [facility]. Rec. #: [id number] /Age/Gender: 1975 (Age: 44) / F Account: [id number] Location: [facility] AMBUL[facility]ORY Taken: 08/03/2020 Received: 08/03/2020 Reported: 08/08/2020 Physicians: Robin Alejandro M.D. Specimen(s) Received LEFT ELBOW FLEXOR TENDON ORIGIN Clinical History Left elbow median epicondylitis Final Diagnosis ELBOW FLEXOR TENDON ORIGIN, LEFT, EXCISION: FIBROCOLLAGENOUS TISSUE, CONSISTENT WITH TENDON. Electronically Signed Sunita Kim M.D. Gross Description Received in formalin labeled "left elbow flexor tendon origin," is a 1.0 x 0.8 x 0.2 cm watson-yellow portion of fibrous tissue, consistent with a portion of tendon. The specimen is submitted in toto in one cassette. 08/04/2020 [facility]08/04/2020
== END 2020-08-03 11:44 | disposition home or self-care (01) ==
LOC: FASU 06:50
PROVIDERS: ATTEND Orthopaedic Surgery Hand Surgery
PROC: 0PBG0ZZ Excision of Left Humeral Shaft, Open Approach (ICD-10-PCS; 2020-08-03)
PROC: 0LN40ZZ Release Left Upper Arm Tendon, Open Approach (ICD-10-PCS; 2020-08-03)
PROC: 0JBF0ZZ Excision of Left Upper Arm Subcutaneous Tissue and Fascia, Open Approach (ICD-10-PCS; 2020-08-03)
PROC: 01N40ZZ Release Ulnar Nerve, Open Approach (ICD-10-PCS; principal; 2020-08-03 09:04)
DX: G56.22 Lesion of ulnar nerve, left upper limb (principal); M77.02 Medial epicondylitis, left elbow; S46.812A Strain of other muscles, fascia and tendons at shoulder and upper arm level, left arm, initial encounter; X58.XXXA Exposure to other specified factors, initial encounter; Y93.9 Activity, unspecified; Y92.9 Unspecified place or not applicable
CPT/HCPCS: 84703; 88304-TC; 94760